=== PATIENT | female | born 1945 | race Caucasian/White ===

== ENCOUNTER 2017-08-09 06:09 | Inpatient (IN) ==
--- NOTE | 2017-08-08 16:34 | Anesthesia Evaluation PreOp ---
Date of Encounter: 08/09/17 Time of Encounter: 06:54 - Past History Planned Operation: PLIF L3-S1 Cardiac History: HTN, Hyperlipidemia Pulmonary History: Denies Any Significant HX SWEATBAND MAKER History: Other (lumbar radicular pain) Other Medical History: Denies Any Significant HX Anesthesia History: No Prior Anesthetic Complications, Past Anesthesia ( bilateralTKA, gastric stapling, umbilical hernia, RCR x 2, HENRIK) : No Alcohol Use: none Drug use: none Medications and Allergies 3 Allergy/AdvReac Type Severity Reaction Status Date / Time codeine Allergy Anxiety Verified 08/08/17 10:36 morphine Allergy Hives Verified 08/08/17 10:36 - Meds/Allergy Pre-op Review Medications Reviewed: Yes Allergies Reviewed: Yes Beta Blockers on Current Med List: No Anesthesia Results - Labs Laboratory Tests 08/08/17 08/08/17 11:11 11:11 Hgb 12.6 Hct 39.2 Plt Count 266 Sodium 140 Potassium 4.0 BUN 13 Creatinine 0.71 Anesthesia Exam Selected Entries 08/09/17 06:43 Temperature 98.7 F Pulse Rate 95 Respiratory Rate 18 Blood Pressure 141/87 O2 Sat by Pulse Oximetry 91 Weight: 114kg NPO (# of Hours): 8 Pain Scale: 3 Pain Scale Used: Numeric (1 - 10) - HEENT Pupil (Motor): EOMI Mallampati: III Teeth: Normal Oral Opening: Greater than 3 - SWEATBAND MAKER LOC: Oriented SWEATBAND MAKER Motor: Normal RUE, Normal LUE, Normal RLE, Normal LLE, Normal Face SWEATBAND MAKER Sensory: Normal: RUE, LUE, RLE, LLE, Face - Cardiac Rhythm: Regular Murmur: None - Pulmonary Breath Sounds: bilateral Clear Respiratory Effort: Symmetrical Anesthesia Assess/Plan ASA Score: 3 Modified Aida Scale for Level of Consciousness: Cooperative, oriented, and tranquil Anesthetic Plan: General Monitoring Plan: Standard Monitors Recovery Plan: PACU (Discussed risks of GA, including blindness from prone position, agrees to proceed.)
[2017-08-09] MEDS ORDERED: CeFAZolin Pre 2,000 MG/100 ML 2,000 MG/100 ML BAG IVPB ONE (06:42)
[2017-08-09] MEDS: Ringers Solution, Lactated 1,000 ML IVC SCH ×3 (07:00→15:08)
[2017-08-09] MEDS ORDERED: Neostigmine Methylsulfate 3 MG/3 ML SYRINGE ONE (07:23)
[2017-08-09] MEDS ORDERED: *HR* Phenylephrine 10 MG/ML VIAL ONE ×2 (07:23→11:11)
[2017-08-09] MEDS ORDERED: Dexamethasone 4 MG/ML VIAL ONE ×2 (07:23→11:15)
[2017-08-09] MEDS ORDERED: *HR* Succinylcholine 200 MG/10 ML VIAL IVP ONE (07:23)
[2017-08-09] MEDS ORDERED: *HR* Rocuronium Bromide 50 MG/5 ML VIAL ONE (07:23)
[2017-08-09] MEDS ORDERED: Lidocaine -MPF 2% 2 ML VIAL ONE (07:23)
[2017-08-09] MEDS ORDERED: Lidocaine -MPF 4% 5 ML AMPUL ONE (07:23)
[2017-08-09] MEDS ORDERED: *HR* Propofol 200 MG/20 ML VIAL IVP ONE (07:23)
[2017-08-09] MEDS ORDERED: *HR* FentaNYL (PF) 100 MCG/2 ML VIAL ONE (07:23)
[2017-08-09] MEDS ORDERED: Ondansetron 4 MG/2 ML VIAL ONE ×2 (07:23→11:15)
[2017-08-09] MEDS ORDERED: *HR* Remifentanil 1 MG VIAL IVP ONE ×2 (07:30→10:58)
--- NOTE | 2017-08-09 07:41 | History & Physical Report ---
Date of Encounter: 08/09/17 Time of Encounter: 07:35 24 Hour HP Update - Instructions Instructions: If the History and Physical is less than 30 days old and was completed prior to A.M. admission and or procedure and has NOT been updated on calendar day of procedure please complete this update prior to performing procedure. - Update Patient reports changes in Medical Condition: No Changes in examination, assessment, or condition: No Changes in Medication: No Preop tests/diagnostics Reviewed: Yes Pre-Op MRSA Screen: Negative Surgery Remains Indicated: Yes Consent for Planned Operative Procedure(s) Verified: Yes - Pre-Operative Checklist Preoperative Checklist Indicated: No Prophylactic Antibiotic Ordered: Yes Home Medications Include Beta Slim: No Beta Slim Taken Today (Day of Surgery): No Beta Slim Taken Yesterday (Day Prior to Surgery): No Is VTE Prophylaxis Indicated?: Yes
[2017-08-09] MEDS ORDERED: EPHEDrine 50 MG/ML VIAL ONE ×2 (08:47→13:54)
[2017-08-09] MEDS ORDERED: *HR* HYDROmorphone (PF) 1 MG/ML SYRINGE IVP PRN (09:04)
[2017-08-09] MEDS ORDERED: *HR* Promethazine 25 MG/ML VIAL IVP PRN (09:04)
[2017-08-09] MEDS ORDERED: *HR* EPINEPHrine 30 MG/30 ML MDV ONE (10:12)
[2017-08-09] MEDS ORDERED: *HR* HYDROmorphone 2 MG/ML SYRINGE ONE (13:08)
--- NOTE | 2017-08-09 13:35 | Orthopedic Operative Note ---
Date of procedure: 08/09/17 Pre-op diagnosis: Spondylolisthesis, lumbar stenosis Post-op diagnosis: same Operation/Findings: Posterior lumbar interbody fusion L3-S1:The patient successfully underwent general endotracheal anesthesia. The patient was given antibiotics prior to the start of the procedure. Compression boots and stockings were used for deep vein thrombosis prophylaxis. A He catheter was placed. Leads for neuro monitoring were placed on the upper and lower extremities. This included the cranium. The neuro monitoring personnel confirmed there were satisfactory readings prior to the start of the procedure. The patient was turned prone on the Dio table. The back was prepped and draped in the usual sterile fashion. An incision was was marked and centered over the involved L3-S1 levels in the mid line. The incision was deepened through the lumbar fascia. Bovie cautery and Dunaway elevators were used to reflect the paraspinal musculature at the lateral extent of the transverse processes of the L3-4, L4-5 , and L5-S1 involved levels. Kita clamps were placed over the spinous processes. An intraoperative lateral fluoroscopy graft was obtained. A conversation was held between the surgeon and radiologist and both confirmed we had the correct operative levels. We then placed pedicle screws in standard fashion with the aid of fluoroscopy and anatomic landmarks. Briefly a starter awl was used. A gearshift was subsequently used to enter the ship pilot hole via a transpedicular route into the vertebral body. The ship pilot hole was tapped with an undersized instrument, and subsequently four 6.5 x 40 mm pedicle screws were placed bilaterally at the indicated L3 and L4 levels. Unilateral screws were placed on the left side at L5 and S1. Hardware was omitted on the right at L5 and S1 in part due to concerns of screw placement. All screws were tested with the aid of the neurologic monitoring staff via pedicle screw stimulation. All reading suggested there was no significant cortical wall breech. The screws were also evaluated fluoro- graphically and appeared to be in satisfactory position. We then turned our attention to the decompression portion of the procedure. We removed the supraspinous and interspinous ligaments and subsequently the insertion of the ligamentum flavum on the undersurface of the proximal L5 lamina was dislodged with a curette. We then removed the ligamentum flavum as well as undercut the facets at this L5-S1 level to decompress the lateral recesses. We also performed a L5 laminectomy. We proceeded proximally to the L4-5 level and performed removal of the hypertrophied ligamentum flavum, undercutting the facets at L4-5, doing partial medial facetectomies, and performing an L4 laminectomy. We then proceeded to L3 -4 level were an additional full decompression was performed including removal of ligamentum flavum, undercutting the L3-4 facets, and partial L3 laminectomy. After the decompression, which was over and above that which was required to place the interbody grafts, the foramen and traversing roots at the L3-4, L4-5, and L5-S1 levels were found to be free and patent. We then protected the neural elements including the thecal sac and traversing nerve root on the left at L5-S1 with a dural retractor. We made an annulotomy into the L5-S1 disc space and then removed entire disc material using Pituitary instruments. We trialed various size grafts after the endplates were prepared for graft insertion. An 8 x 26 enter body graft fit well within the L5-S1 disc space. We obtained some bone from the left posterior superior iliac spine through us a separate incision and combined with this with the bone which we had saved from the laminectomy portion of the procedure. This autograft bone was first placed in the anterior portion of the L5-S1 disc space and additional bone was placed within the interbody graft spacer. We then placed the interbody graft spacer obliquely across the L5-S1 disc space towards the midline while protecting the neural elements with a root retractor. When the graft was found to be in satisfactory position the heat treat supervisor was removed. We then turned our attention to the L4-5 level where we again protected the thecal sac and nerve root with a dural retractor. We may an annulotomy and performed a discectomy of the entire L4-5 disc. We prepared the endplates for graft insertion. We trialed an 8 x 26 mm graft which fit well within the L4-5 disc space. We packed the anterior portion of the disc space with autograft bone, and then we placed autograft bone within and interbody cage and carefully placed this while protecting the neural elements. When found to be in appropriate position by fluorographic views the heat treat supervisor was removed leaving a well-placed interbody graft at L4-5. We then copiously irrigated the wound. We then decorticated the L3, L4, L5 transverse processes in the proximal portion of the sacrum as well as the L3-4 , L4-5, and L5-S1 facet joints of the involved L3-S1 levels to aid in the posterolateral fusion. We placed autograft bone in the lateral gutters over these regions. We then placed rods within the screw heads of the involved levels and first locked the distal screws and then subsequently locked the proximal screws so as to improve and reduce the spondylolisthesis at each of these levels that was previously seen. We then closed the wound in layers with 1 Vicryl for the fascia, 2-0 Vicryl. Subcutaneous tissue, and Dermabond was used for skin closure. Sterile dressings were placed over the wound. The patient was turned supine on a hospital bed and extubated. All sponge instruments and needle counts were correct at the end of the procedure. The patient tolerated the procedure well without complications. Anesthesia: GETA Surgeon: Mohsen Sandoval Jr Estimated blood loss (cc): 900 Condition: stable Disposition: PACU
[2017-08-09 14:49] LABS: Hematocrit 32.8 % (35.3-44.9); Hemoglobin 10.4 g/dL (11.5-15.4)
--- NOTE | 2017-08-09 15:09 | Anesthesia Evaluation Post Op ---
Date of Encounter: 08/09/17 Time of Encounter: 15:06 - Vital Signs Vital Signs: Selected Entries 08/09/17 14:48 Temperature 97.8 F Pulse Rate 90 Respiratory Rate 11 Blood Pressure 86/45 O2 Sat by Pulse Oximetry 95 Oxygen Flow Rate (LPM) 2 - Lungs Lungs: Clear Ascult./Percussion - Airway Airway: Non-obstructed - Cardiovascular Regular Rate - Mental Status Mental Status: Alert & Oriented, Answers Appropriately - Pain Pain Scale: 2 Pain Scale used: Numeric (1 - 10) - Nausea Vomiting Nausea Vomiting: Not Present - Hydration Hydration: Ice chips, He catheter - Discharge PostOp Status: Transfer Patient to floor (Patient with hypotension compared to pre-op. Hemoglobin is 10.4, Has had 500cc albumin plus 1000cc crystalloid without improvement. Patient is assymptomatic. Will transfer to floor.)
[2017-08-09] MEDS ORDERED: *HR* Morphine 2 MG/ML SYRINGE IVP PRN (15:57)
[2017-08-09] MEDS ORDERED: Naloxone 0.4 MG/ML INJ IVP PRN (15:57)
[2017-08-09] MEDS ORDERED: *HR* OxyCODONE Immed Rel 5 MG TABLET PO PRN (15:57)
[2017-08-09] MEDS ORDERED: Ringers Solution, Lactated 1,000 ML IVC SCH (15:57)
[2017-08-09] MEDS ORDERED: Acetaminophen 325 MG TABLET PO PRN (15:57)
[2017-08-09] MEDS ORDERED: Ondansetron 4 MG/2 ML VIAL IVP PRN (15:57)
[2017-08-09] MEDS: FLUoxetine 20 MG CAPSULE PO SCH (17:43)
[2017-08-09] MEDS: ceFAZolin 2,000 MG in D5% in Water 100 ML IVPB SCH (17:44)
[2017-08-09] MEDS: diazePAM 5 MG TABLET PO PRN (20:30)
[2017-08-09] MEDS: *HR* OxyCODONE Immed Rel 5 MG TABLET PO PRN (21:47)
[2017-08-10] MEDS: ceFAZolin 2,000 MG in D5% in Water 100 ML IVPB SCH (00:33)
[2017-08-10] MEDS: *HR* OxyCODONE Immed Rel 5 MG TABLET PO PRN ×4 (02:46→23:55)
[2017-08-10] MEDS: diazePAM 5 MG TABLET PO PRN ×2 (05:12→14:12)
[2017-08-10 05:16] LABS: Basophils % 0.1 %; Hematocrit 27.7 % (35.3-44.9); Immature Granulocytes % 0.4 % (0-4); Lymphocytes # 0.8 K/mcL (0.6-4.6); Lymphocytes % 6.3 %; Mean Corpuscular HGB Conc 32.5 g/dL (31.6-35.5); Mean Corpuscular Volume 92.3 fL (83.0-100.0); Mean Platelet Volume 9.8 fL (9.4-12.4); Monocytes # 1.7 K/mcL (0.0-1.3); Monocytes % 13.5 %; Platelet Count 187 K/mcL (140-400); Red Cell Distribution Width 13.9 % (11.5-14.5); Segmented Neutrophils % 79.7 %
[2017-08-10 05:38] LABS: BUN/Creatinine Ratio 19 (6-26); Blood Urea Nitrogen 14 mg/dL (7-20); Calcium 8.6 mg/dL (8.6-10.8); Carbon Dioxide 26 mEq/L (19-29); Chloride 106 mEq/L (98-109); Glucose 120 mg/dL (70-99); Osmolality,Calculated 286 (280-300); Potassium 4.1 mEq/L (3.5-4.5); Sodium 137 mEq/L (136-145); eGFR For African Americans > 60 (> 60); eGFR For Non-African Americans > 60 (> 60)
[2017-08-10] MEDS: Cholecalciferol (D-3) 1,000 UNIT TABLET PO SCH (08:46)
[2017-08-10] MEDS: Ascorbic Acid 500 MG TABLET PO SCH (08:46)
[2017-08-10] MEDS: Cyanocobalamin (B-12) 1,000 MCG TABLET PO SCH (08:46)
[2017-08-10] MEDS: ASTRAGALUS ROOT PO SCH (09:14)
[2017-08-10] MEDS: Cinnamon Bark [Cinnamon] 500 MG PO SCH (09:14)
[2017-08-10] MEDS: Acetaminophen IV 1,000 MG/100 ML INFUS..BTL IVPB PRN ×2 (10:25→17:38)
[2017-08-10] MEDS: FLUoxetine 20 MG CAPSULE PO SCH (17:59)
[2017-08-11] MEDS: *HR* OxyCODONE Immed Rel 5 MG TABLET PO PRN ×5 (03:58→21:12)
[2017-08-11] MEDS: Cyanocobalamin (B-12) 1,000 MCG TABLET PO SCH (08:36)
[2017-08-11] MEDS: Cholecalciferol (D-3) 1,000 UNIT TABLET PO SCH (08:43)
[2017-08-11] MEDS: Ascorbic Acid 500 MG TABLET PO SCH (08:43)
[2017-08-11] MEDS: ASTRAGALUS ROOT PO SCH (12:35)
[2017-08-11] MEDS: Cinnamon Bark [Cinnamon] 500 MG PO SCH (12:37)
--- NOTE | 2017-08-11 13:18 | Spine Progress Note ---
Date of Encounter: 08/10/17 Time of Encounter: 16:10 Subjective Principal diagnosis: Spondylolisthesis, lumbar stenosis Interval history: The patient complains of back pain . Afebrile vital signs are stable. Dressing is clean dry and intact. Neurovascularly intact with regard to bilateral lower extremities. Fires all upper and lower extremity motor groups. . Assessment :stable. Plan mobilize ,continue analgesics, discharge planning. Objective Vital signs: Vital Signs Temp Pulse Resp BP Pulse Ox 08/11/17 12:33 98.4 F 109 18 134/75 97 08/11/17 07:24 99.1 F 113 18 134/83 94 08/11/17 03:33 98.3 F 107 16 143/77 93 08/10/17 23:00 99.5 F 109 16 102/36 93 08/10/17 18:40 98.9 F 109 18 123/62 94 08/10/17 15:22 98.3 F 101 20 121/75 93 Intake and Output 08/10/17 08/11/17 08/11/17 23:59 07:59 15:59 Intake Total 240 / 240 0 / 0 200 / 200 Output Total 800 / 800 450 / 450 225 / 225 Balance -560 / -560 -450 / -450 -25 / -25 Intake: Oral 240 / 240 0 / 0 200 / 200 Output: Urine 800 / 800 450 / 450 225 / 225 Other: Meal Dinner Breakfast Percent of Meal Consumed 50% # Urine Diapers 1 Weight 115.6 kg Patient Weight 08/11/17 23:59 Weight 115.6 kg - Labs CBC & BMP: 08/10/17 03:59 08/10/17 03:59 Labs: Abnormal lab results WBC 12.6 K/mcL (4.3-11.1) H D 08/10/17 03:59 RBC 3.00 M/mcL (3.82-4.97) L 08/10/17 03:59 Hgb 9.0 g/dL (11.5-15.4) L 08/10/17 03:59 Hct 27.7 % (35.3-44.9) L 08/10/17 03:59 Neutrophils # 10.0 K/mcL (1.6-8.9) H 08/10/17 03:59 Monocytes # 1.7 K/mcL (0.0-1.3) H 08/10/17 03:59 Glucose 120 mg/dL (70-99) H 08/10/17 03:59 Consult Discharge Plan - Plan Referrals: Jina Lozano PAC [Physician Hot Bread Baker] - 08/23/17 2:45 pm Mohsen Sandoval Jr, MD [Partnered Physician] - 11/10/17 3:45 pm NONE,PCP [Primary Care Provider] -
[2017-08-11] MEDS: FLUoxetine 20 MG CAPSULE PO SCH (16:51)
[2017-08-12] MEDS: *HR* OxyCODONE Immed Rel 5 MG TABLET PO PRN ×6 (02:27→23:48)
[2017-08-12] MEDS: Ascorbic Acid 500 MG TABLET PO SCH (08:36)
[2017-08-12] MEDS: Cyanocobalamin (B-12) 1,000 MCG TABLET PO SCH (08:36)
[2017-08-12] MEDS: ASTRAGALUS ROOT PO SCH (08:36)
[2017-08-12] MEDS: Cinnamon Bark [Cinnamon] 500 MG PO SCH (08:36)
[2017-08-12] MEDS: Cholecalciferol (D-3) 1,000 UNIT TABLET PO SCH (08:36)
[2017-08-12] MEDS: diazePAM 5 MG TABLET PO PRN ×3 (08:41→23:48)
--- NOTE | 2017-08-12 14:09 | Spine Progress Note ---
Date of Encounter: 08/11/17 Time of Encounter: 13:10 Subjective Principal diagnosis: Spondylolisthesis, lumbar stenosis Interval history: The patient complains of back pain . Afebrile vital signs are stable. Dressing is clean dry and intact. Neurovascularly intact with regard to bilateral lower extremities. Fires all upper and lower extremity motor groups. . Assessment :stable. Plan mobilize ,continue analgesics, discharge planning. Objective Vital signs: Vital Signs Temp Pulse Resp BP Pulse Ox 08/12/17 09:50 98.5 F 94 16 148/89 95 08/12/17 06:42 98.3 F 98 16 156/87 93 08/12/17 00:19 98.0 F 100 16 165/92 90 08/11/17 19:56 99.2 F 109 16 119/77 92 Intake and Output 08/11/17 08/12/17 08/12/17 23:59 07:59 15:59 Intake Total 600 / 600 550 / 550 940 / 940 Output Total 150 / 150 400 / 400 700 / 700 Balance 450 / 450 150 / 150 240 / 240 Intake: Oral 600 / 600 550 / 550 940 / 940 Output: Urine 150 / 150 400 / 400 700 / 700 Other: Meal Breakfast Percent of Meal Consumed 20% # Voids 1 1 - Labs CBC & BMP: 08/10/17 03:59 08/10/17 03:59 Labs: Abnormal lab results WBC 12.6 K/mcL (4.3-11.1) H D 08/10/17 03:59 RBC 3.00 M/mcL (3.82-4.97) L 08/10/17 03:59 Hgb 9.0 g/dL (11.5-15.4) L 08/10/17 03:59 Hct 27.7 % (35.3-44.9) L 08/10/17 03:59 Neutrophils # 10.0 K/mcL (1.6-8.9) H 08/10/17 03:59 Monocytes # 1.7 K/mcL (0.0-1.3) H 08/10/17 03:59 Glucose 120 mg/dL (70-99) H 08/10/17 03:59 Consult Discharge Plan - Plan Additional Instructions: Discharge Instructions: Lumbar Please call [facility] ([phone]), your Primary Care Physician, or report to the ER if you have any of the following symptoms: Fever greater that 101.5, increased pain/redness/drainage/odor for your incision site or any other concerning symptoms. ACTIVITY * May Shower * No Tub Baths * No lifting greater than 10 pounds * No Smoking * No Swimming * No off Ground Activities (Running, Climbing, Ladders, Horseback Riding) * No Driving * Wear Back Brace when up walking if lumbar fusion done MEDICATIONS: Upon discharge resume your home medications. Take all the medications as prescribed. Take a stool softener if taking narcotic pain medications. Stool softeners are only effective if you drink enough fluids. Drink 6-8 glass of water or fluids a day, unless this is not allowed for another health problem. Despite using stool softeners, if you haven't had a bowel movement in 3 days, please switch to a gentle laxative. Gentle laxatives are sold over the counter. You should have a bowel movement within 24 hours, if not call the office. You will be discharged from the hospital with a prescription for pain medication. You are encouraged to decrease the use of narcotic pain medication as tolerated. Should you require a refill, please call the office. It is best to call 48-72 hours in advance of needing a prescription refill so you don't run out of medication. WOUND CARE: Remove Dressing Tomorrow. Leave incision open to air. Pat dry when you get out of the shower. FOLLOW-UP: Please follow up with your surgeon in the orthopedic clinic in 2 weeks from the day of surgery. References: [employer] ([email or web address]) Referrals: Jina Lozano PAC [Physician Tin Flopper] - 08/23/17 2:45 pm Mohsen Sandoval Jr, MD [Partnered Physician] - 11/10/17 3:45 pm NONE,PCP [Primary Care Provider] -
--- NOTE | 2017-08-12 14:12 | Discharge Summary ---
Date of Encounter: 08/12/17 Time of Encounter: 14:09 - Discharge Diagnosis (1) Spondylolisthesis of lumbar region Priority: Primary Status: Chronic (2) Lumbar stenosis with neurogenic claudication Priority: Secondary Status: Chronic - Discharge Medications Prescriptions: OxyCODONE Immed Rel [Roxicodone 5 MG] 5 mg PO Q4HR PRN #30 tablet PRN Reason: Severe Pain Home Medications: Ascorbic Acid [Vitamin C] 1,000 mg PO DAILY 08/09/17 [History] Astragalus Root 470 mg PO DAILY 08/09/17 [History] Calcium Carbonate/Vitamin D3 [Calcium 500 + Vit D Caplet] 1 tab PO BID 08/09/17 [History] Cholecalciferol (D-3) [Vitamin D] 5,000 unit PO DAILY 08/09/17 [History] Cinnamon Bark [Cinnamon] 500 mg PO DAILY 08/09/17 [History] Cyanocobalamin (Vitamin B-12) [Vitamin B-12] 1,000 mcg SL DAILY 08/09/17 [ History] FLUoxetine HCl [Prozac] 20 mg PO QPM 08/09/17 [History] FLUoxetine HCl [Prozac] 40 mg PO QAM 08/09/17 [History] Ferrous Sulfate 325 mg PO DAILY 08/09/17 [History] Fluticasone Propionate Nasal [Flonase] 2 spr NS DAILY 08/09/17 [History] Folic Acid 0.4 mg PO DAILY 08/09/17 [History] Krill/Om-3/Dha/Epa/Phospho/Ast [Elon-3 Krill Oil 1,000 mg] 1 cap PO DAILY 08/09 [History] Lisinopril [Zestril] 20 mg PO DAILY 08/09/17 [History] Naproxen Sodium [Aleve] 220 mg PO BID 08/09/17 [History] Oxybutynin Chloride [Ditropan Xl] 10 mg PO DAILY 08/09/17 [History] Simvastatin [Zocor] 20 mg PO HS 08/09/17 [History] Teriparatide [Forteo] 2.4 ml SQ DAILY 08/09/17 [History] Turmeric Root Extract [Turmeric] 500 mg PO DAILY 08/09/17 [History] OxyCODONE Immed Rel [Roxicodone 5 MG] 5 mg PO Q4HR PRN #30 tablet 08/12/17 [Rx] Allergies/Adverse Reactions: 3 Allergy/AdvReac Type Severity Reaction Status Date / Time morphine Allergy Hives Verified 08/09/17 07:41 codeine AdvReac Anxiety Verified 08/09/17 07:41 - Impressions ITS Impressions Lumbar Spine X-Ray 08/09/17 08:45 IMPRESSION: 1. Posterior spinal fusion and discectomy with no evidence of hardware complication. 2. Multilevel spondylolisthesis. This appears improved from prior exam. D/ / 08/09/2017 16:23:42 Vineet Parekh MD / Carmina Leo Interpreting Provider: Vineet Parekh MD Lumbar Spine X-Ray 08/12/17 09:00 IMPRESSION: 1. Postsurgical change from lower lumbar spine fusion without evidence of hardware complication. 2. Multilevel degenerative changes of the lumbar spine. 3. Grade 1 anterolisthesis at L4-L5 and L5-S1. D/ / Walter Partida MD / Walter Partida MD Interpreting Provider: Walter Partida MD Date of admission: 08/09/17 15:24 Primary care physician: PCP NONE Consults: 08/09/17 15:57 Consult to Occupational Therapy [CONS] Routine Comment: Evaluate, develop and implement POC Reason for Consult: Postoperative rehabilitation Consult to Physical Therapy [CONS] Routine Comment: Evaluate, develop and implement POC Reason for Consult: Postoperative rehabilitation Consult to Air Chief Marshal [CONS] Routine Reason for SW Consult: Postoperative rehabilitation Consult to Spine Navigator [CONS] [CONS] Routine 08/09/17 16:20 Consult to Pastoral Services [CONS] Routine Comment: pt request - Patient Status Disposition: Transfer Inpatient Rehab Fac Condition: Good Functional capacity at discharge: uses cane/walker Overall status at discharge: patient is progressing back to baseline - Discharge Instructions Follow Up With: Jina Lozano PAC [Physician Process Controller] - 08/23/17 2:45 pm Mohsen Sandoval Jr, MD [Partnered Physician] - 11/10/17 3:45 pm NONE,PCP [Primary Care Provider] - Additional Instructions: Discharge Instructions: Lumbar Please call [facility] ([phone]), your Primary Care Physician, or report to the ER if you have any of the following symptoms: Fever greater that 101.5, increased pain/redness/drainage/odor for your incision site or any other concerning symptoms. ACTIVITY * May Shower * No Tub Baths * No lifting greater than 10 pounds * No Smoking * No Swimming * No off Ground Activities (Running, Climbing, Ladders, Horseback Riding) * No Driving * Wear Back Brace when up walking if lumbar fusion done MEDICATIONS: Upon discharge resume your home medications. Take all the medications as prescribed. Take a stool softener if taking narcotic pain medications. Stool softeners are only effective if you drink enough fluids. Drink 6-8 glass of water or fluids a day, unless this is not allowed for another health problem. Despite using stool softeners, if you haven't had a bowel movement in 3 days, please switch to a gentle laxative. Gentle laxatives are sold over the counter. You should have a bowel movement within 24 hours, if not call the office. You will be discharged from the hospital with a prescription for pain medication. You are encouraged to decrease the use of narcotic pain medication as tolerated. Should you require a refill, please call the office. It is best to call 48-72 hours in advance of needing a prescription refill so you don't run out of medication. WOUND CARE: Remove Dressing Tomorrow. Leave incision open to air. Pat dry when you get out of the shower. FOLLOW-UP: Please follow up with your surgeon in the orthopedic clinic in 2 weeks from the day of surgery. References: [employer] ([email or web address]) - Diet and Activity Activity: as per physical therapy Diet: advance to your usual diet - Hospital Course Hospital course: Ms. Tabares is a 72 year old female The patient had an uneventful postoperative course. Progressed from intravenous analgesic needs to oral analgesic needs only. Remained neurovascularly intact and mobilized satisfactorily. All intraoperative and/or postoperative radiographic studies were satisfactory. Patient is discharged with plan for rehabilitation and follow-up in 2 weeks post discharge on analgesic medication and patient's home medications. - Time Spent with Patient Total time spent providing and/or coordinating discharge services: - VTE Documentation of Mechanical Device: Graduated compression elastic hosiery
[2017-08-12] MEDS: FLUoxetine 20 MG CAPSULE PO SCH (17:01)
[2017-08-13] MEDS: *HR* OxyCODONE Immed Rel 5 MG TABLET PO PRN ×2 (05:16→14:23)
[2017-08-13] MEDS: diazePAM 5 MG TABLET PO PRN ×2 (05:16→13:49)
[2017-08-13 07:16] VITALS: BP 142/83
--- NOTE | 2017-08-13 07:35 | Orthopedics Progress Note ---
Date of Encounter: 08/13/17 Time of Encounter: 07:35 Subjective Principal diagnosis: Spondylolisthesis, lumbar stenosis Interval history: Patient was seen this morning getting up from bedside commode without complaints Afebrile vital signs stable. Operative extremity: Neurovascularly intact Calves nontender Assessment and plan: Continue with postoperative care, discharge held secondary to placement Objective Vital signs: Vital Signs Temp Pulse Resp BP Pulse Ox 08/13/17 07:13 98.0 F 96 18 142/83 96 08/13/17 05:16 98.0 F 85 19 124/82 94 08/13/17 00:03 99.9 F H 100 16 125/72 93 08/12/17 19:53 94 08/12/17 15:28 98.5 F 94 20 149/55 94 08/12/17 09:50 98.5 F 94 16 148/89 95 Intake and Output 08/12/17 08/12/17 08/13/17 15:59 23:59 07:59 Intake Total 940 / 940 240 / 240 50 / 50 Output Total 1000 / 1000 Balance -60 / -60 240 / 240 50 / 50 Intake: Oral 940 / 940 240 / 240 50 / 50 Output: Urine 1000 / 1000 Other: Meal Breakfast Dinner Percent of Meal Consumed 20% 70% # Voids 1 # Urine Diapers 2 Weight 115.666 kg Patient Weight 08/13/17 23:59 Weight 115.666 kg - Labs CBC & BMP: 08/10/17 03:59 08/10/17 03:59 Labs: Abnormal lab results WBC 12.6 K/mcL (4.3-11.1) H D 08/10/17 03:59 RBC 3.00 M/mcL (3.82-4.97) L 08/10/17 03:59 Hgb 9.0 g/dL (11.5-15.4) L 08/10/17 03:59 Hct 27.7 % (35.3-44.9) L 08/10/17 03:59 Neutrophils # 10.0 K/mcL (1.6-8.9) H 08/10/17 03:59 Monocytes # 1.7 K/mcL (0.0-1.3) H 08/10/17 03:59 Glucose 120 mg/dL (70-99) H 08/10/17 03:59 - VTE Documentation of Mechanical Device: Venous foot pump, device Consult Discharge Plan - Plan Additional Instructions: Discharge Instructions: Lumbar Please call [facility] ([phone]), your Primary Care Physician, or report to the ER if you have any of the following symptoms: Fever greater that 101.5, increased pain/redness/drainage/odor for your incision site or any other concerning symptoms. ACTIVITY * May Shower * No Tub Baths * No lifting greater than 10 pounds * No Smoking * No Swimming * No off Ground Activities (Running, Climbing, Ladders, Horseback Riding) * No Driving * Wear Back Brace when up walking if lumbar fusion done MEDICATIONS: Upon discharge resume your home medications. Take all the medications as prescribed. Take a stool softener if taking narcotic pain medications. Stool softeners are only effective if you drink enough fluids. Drink 6-8 glass of water or fluids a day, unless this is not allowed for another health problem. Despite using stool softeners, if you haven't had a bowel movement in 3 days, please switch to a gentle laxative. Gentle laxatives are sold over the counter. You should have a bowel movement within 24 hours, if not call the office. You will be discharged from the hospital with a prescription for pain medication. You are encouraged to decrease the use of narcotic pain medication as tolerated. Should you require a refill, please call the office. It is best to call 48-72 hours in advance of needing a prescription refill so you don't run out of medication. WOUND CARE: Remove Dressing Tomorrow. Leave incision open to air. Pat dry when you get out of the shower. FOLLOW-UP: Please follow up with your surgeon in the orthopedic clinic in 2 weeks from the day of surgery. References: [employer] ([email or web address]) Referrals: Jina Lozano PAC [Physician Director Commercial Sales] - 08/23/17 2:45 pm Mohsen Sandoval Jr, MD [Partnered Physician] - 11/10/17 3:45 pm NONE,PCP [Primary Care Provider] - Prescriptions: OxyCODONE Immed Rel [Roxicodone 5 MG] 5 mg PO Q4HR PRN #30 tablet PRN Reason: Severe Pain
[2017-08-13] MEDS: ASTRAGALUS ROOT PO SCH (08:41)
[2017-08-13] MEDS: Cinnamon Bark [Cinnamon] 500 MG PO SCH (08:41)
[2017-08-13] MEDS: Cyanocobalamin (B-12) 1,000 MCG TABLET PO SCH (08:41)
[2017-08-13] MEDS: Ascorbic Acid 500 MG TABLET PO SCH (08:41)
[2017-08-13] MEDS: Cholecalciferol (D-3) 1,000 UNIT TABLET PO SCH (08:41)
[2017-08-13] MEDS ORDERED: Bisacodyl 10 MG RECTAL SUPPOSITORY RC ONE (10:00)
== END 2017-08-13 15:06 | DRG 460 ==
LOC: SAMDAY 06:09 → 3NENU 15:24
PROVIDERS: ADMIT Orthopaedic Surgery Orthopaedic Surgery of the Spine; ATTEND Orthopaedic Surgery Orthopaedic Surgery of the Spine

== ENCOUNTER 2019-08-20 06:19 | Inpatient (IN) ==
[2019-08-20] MEDS ORDERED: Famotidine 20 MG/2 ML VIAL IVP ONE (06:54)
[2019-08-20] MEDS ORDERED: Acetaminophen IV 1,000 MG/100 ML INFUS..BTL IVPB ONE (06:54)
[2019-08-20] MEDS ORDERED: Pregabalin 75 MG CAPSULE PO ONE (06:55)
[2019-08-20] MEDS ORDERED: Celecoxib 200 MG CAPSULE PO ONE (06:55)
[2019-08-20] MEDS ORDERED: Ringers Solution, Lactated 1,000 ML IVC SCH ×2 (07:00→10:27)
[2019-08-20] MEDS ORDERED: CeFAZolin Syr 2,000MG/20 ML 2,000 MG/20 ML SYRINGE IVPB ONE (07:01)
[2019-08-20] MEDS ORDERED: Lidocaine -MPF 1% 2 ML AMPUL ONE (07:01)
[2019-08-20] MEDS ORDERED: *HR* FentaNYL (PF) 100 MCG/2 ML VIAL ONE (07:09)
[2019-08-20] MEDS ORDERED: *HR* Propofol 200 MG/20 ML VIAL IVP ONE ×2 (07:09→08:17)
[2019-08-20] MEDS ORDERED: *HR* Midazolam HCl 2 MG/2 ML VIAL ONE (07:09)
[2019-08-20] MEDS ORDERED: *HR* Succinylcholine 200 MG/10 ML VIAL IVP ONE (07:14)
[2019-08-20] MEDS ORDERED: Lidocaine -MPF 2% 2 ML VIAL ONE (07:14)
[2019-08-20] MEDS ORDERED: Dexamethasone 4 MG/ML VIAL ONE (07:14)
[2019-08-20] MEDS ORDERED: Ondansetron 4 MG/2 ML VIAL ONE (07:14)
[2019-08-20] MEDS ORDERED: Ethanol\\Acetic Acid\\Na Ace\\Ben 1,000 ML IRRIG.SOLN IR ONE (07:14)
[2019-08-20] MEDS ORDERED: *HR* OxyCODONE Immed Rel 5 MG TABLET PO PRN ×2 (07:15→10:27)
[2019-08-20] MEDS ORDERED: *HR* Labetalol 20 MG/4 ML SYRINGE IVP PRN (07:15)
[2019-08-20] MEDS ORDERED: Ondansetron 4 MG/2 ML VIAL IVP ONE (07:15)
[2019-08-20] MEDS ORDERED: Lidocaine HCL 4 ML Topical Solution (Laryng-O-Jet Kit Sterile Pak) TP ONE (07:16)
[2019-08-20] MEDS ORDERED: ROPIVACAINE/PF/NS 0.25% 1 EACH SYRINGE INTRAART ONE (07:30)
[2019-08-20] MEDS ORDERED: Ropivacaine/PF 0.5% 30 ML VIAL ONE (07:30)
[2019-08-20] MEDS ORDERED: EPHEDrine 50 MG/ML VIAL ONE (08:14)
[2019-08-20] MEDS ORDERED: *HR* PHENYLEPHRINE 1,000 MCG/10 ML SYRINGE IVP ONE (08:14)
[2019-08-20 09:50] LABS: Hematocrit 35.7 % (35.3-44.9); Hemoglobin 11.1 g/dL (11.5-15.4)
[2019-08-20] MEDS ORDERED: Sennosides 8.6 MG TABLET PO PRN (10:27)
[2019-08-20] MEDS ORDERED: NON-FORMULARY MEDICATION 1 EACH EACH (Calcium Carbonate/Vitamin D3 [Calcium 500 + Vit D Ca PO SCH (10:27)
[2019-08-20] MEDS ORDERED: Temazepam 15 MG CAPSULE PO PRN (10:27)
[2019-08-20] MEDS ORDERED: NON-FORMULARY MEDICATION 1 EACH EACH (Cranberry 500 MG) PO SCH (10:27)
[2019-08-20] MEDS ORDERED: Ondansetron 4 MG/2 ML VIAL IVP PRN (10:27)
[2019-08-20] MEDS ORDERED: *HR* OxyCODONE/APAP 5/325 TABLET PO PRN (10:27)
[2019-08-20] MEDS ORDERED: traMADol 50 MG TABLET PO PRN (10:27)
[2019-08-20] MEDS ORDERED: MOM Conc 10 ML UD.LIQ PO PRN (10:27)
[2019-08-20] MEDS ORDERED: Denosumab 60 MG/ML SYRINGE SQ SCH (10:27)
[2019-08-20] MEDS ORDERED: Chloraseptic Spray 177 ML BOTTLE MM PRN (11:38)
[2019-08-20] MEDS ORDERED: Benzonatate 100 MG CAPSULE PO PRN (11:39)
[2019-08-20] MEDS: Lisinopril 20 MG TABLET PO SCH (11:55)
[2019-08-20] MEDS: Furosemide 20 MG TABLET PO SCH (11:55)
[2019-08-20] MEDS: Metoprolol XL (24 HR) Succ 25 MG TAB.ER.24H PO SCH (12:20)
[2019-08-20] MEDS: Cyanocobalamin (B-12) 1,000 MCG TABLET PO SCH (12:22)
[2019-08-20] MEDS: Aspirin Enteric Coated 81 MG Tablet PO SCH (12:22)
[2019-08-20] MEDS: Fluticasone Propionate Nasal 50 MCG/SPRAY BOTTLE NS SCH (12:22)
[2019-08-20] MEDS: Folic Acid 1 MG TABLET PO SCH (12:22)
[2019-08-20] MEDS: Ascorbic Acid 500 MG TABLET PO SCH (12:22)
[2019-08-20] MEDS: LEVOCARNITINE TARTRATE 500 MG PO SCH (12:22)
[2019-08-20] MEDS: Magnesium Oxide 400 MG TABLET PO SCH (12:22)
[2019-08-20] MEDS: Cholecalciferol (D-3) 1,000 UNIT (25MCG) TABLET PO SCH (12:23)
[2019-08-20] MEDS: *HR* Enoxaparin 30 MG/0.3 ML SYRINGE SQ SCH (17:07)
[2019-08-20] MEDS ORDERED: *HR* Enoxaparin 30 MG/0.3 ML SYRINGE SQ SCH (18:00)
[2019-08-21] MEDS: *HR* Enoxaparin 30 MG/0.3 ML SYRINGE SQ SCH (04:57)
[2019-08-21 05:07] LABS: Hematocrit 31.7 % (35.3-44.9); Hemoglobin 10.5 g/dL (11.5-15.4)
[2019-08-21 05:29] LABS: BUN/Creatinine Ratio 19 (6-26); Blood Urea Nitrogen 12 mg/dL (8-23); Carbon Dioxide 24 mEq/L (23-29); Chloride 113 mEq/L (98-107); Glucose 108 mg/dL (70-105); Osmolality,Calculated 294 (280-300); Potassium 3.7 mEq/L (3.5-5.1); Sodium 142 mEq/L (136-145); eGFR For African Americans > 60 (> 60); eGFR For Non-African Americans > 60 (> 60)
[2019-08-21] MEDS: Aspirin Enteric Coated 81 MG Tablet PO SCH (08:23)
[2019-08-21] MEDS: Magnesium Oxide 400 MG TABLET PO SCH (08:24)
[2019-08-21] MEDS: Folic Acid 1 MG TABLET PO SCH (08:24)
[2019-08-21] MEDS: Ascorbic Acid 500 MG TABLET PO SCH (08:24)
[2019-08-21] MEDS: Cyanocobalamin (B-12) 1,000 MCG TABLET PO SCH (08:24)
[2019-08-21] MEDS: Furosemide 20 MG TABLET PO SCH (08:25)
[2019-08-21] MEDS: Cholecalciferol (D-3) 1,000 UNIT (25MCG) TABLET PO SCH (08:25)
[2019-08-21] MEDS: Fluticasone Propionate Nasal 50 MCG/SPRAY BOTTLE NS SCH (08:26)
[2019-08-21] MEDS: Metoprolol XL (24 HR) Succ 25 MG TAB.ER.24H PO SCH (08:32)
[2019-08-21] MEDS: LEVOCARNITINE TARTRATE 500 MG PO SCH (08:37)
[2019-08-21] MEDS: Lisinopril 20 MG TABLET PO SCH (08:37)
[2019-08-21 11:56] VITALS: BP 112/64
== END 2019-08-21 12:10 | disposition home health service (06) | DRG 483 ==
LOC: SAMDAY 06:19 → 3NENU 10:27
PROVIDERS: ADMIT Orthopaedic Surgery; ATTEND Orthopaedic Surgery